=== PATIENT | male | born 1980 | race Caucasian/White ===

== ENCOUNTER 2017-07-21 14:30 | Emergency (ER) | payer OTHER ==
[2017-07-21] MEDS ORDERED: HYDROmorphone 1 MG/ML Syringe IM ONE (14:41)
[2017-07-21] MEDS ORDERED: HYDROmorphone 1 MG/ML Syringe IVPUSH ONE ×2 (14:55→15:41)
[2017-07-21] MEDS ORDERED: Lidocaine 1% 30 ML SDV INJECT ONE (15:14)
[2017-07-21] MEDS ORDERED: Cephalexin 500 MG Cap PO ONE (15:41)
--- NOTE | 2017-07-21 15:41 | EDM.PDOC ---
ED HPI GENERAL MEDICAL PROBLEM - General Chief Complaint: Upper Extremity Injury/Pain Stated Complaint: hand in auger Time Seen by Provider: 07/21/17 14:38 Source of Information: Reports: Patient History Limitations: Reports: No Limitations - History of Present Illness INITIAL COMMENTS - FREE TEXT/NARRATIVE: Patient comes in with complaints of left hand laceration. He had his left hand in an auger when it was turned on while he was working. He is unsure whether his fingers and hand are still attached. Injury is wrapped in blue shop towels. No longer bleeding, pressure was held. Onset: Today, Sudden Onset Date: 07/21/17 Onset Time: 14:15 Location: Reports: Upper Extremity, Left Quality: Reports: Sharp Severity: Severe Improves with: Reports: None Worsens with: Reports: Movement Associated Symptoms: Reports: No Other Symptoms - Related Data Allergies Allergy/AdvReac Type Severity Reaction Status Date / Time No Known Allergies Allergy Verified 07/21/17 14:49 Home Meds: Home Meds . [No Known Home Meds] 07/21/17 [History] Review of Systems - Review of Systems Review Of Systems: See Below Constitutional: Reports: No Symptoms Eyes: Reports: No Symptoms Ears: Reports: No Symptoms Nose: Reports: No Symptoms Mouth/Throat: Reports: No Symptoms Respiratory: Reports: No Symptoms Cardiovascular: Reports: No Symptoms GI/Abdominal: Reports: No Symptoms Genitourinary: Reports: No Symptoms Musculoskeletal: Reports: Hand Pain Skin: Reports: Wound (left hand laceration) Neurological: Reports: Tingling (left 4th and 5th digits) ED EXAM, GENERAL - Physical Exam Exam: See Below Exam Limited By: No Limitations General Appearance: Alert, WD/WN, Moderate Distress Respiratory/Chest: No Respiratory Distress, Lungs Clear, Normal Breath Sounds Cardiovascular: Normal Peripheral Pulses, Regular Rate, Rhythm Neurological: Alert, Oriented, CN II-XII Intact, Normal Cognition, Normal Reflexes Skin Exam: Wound/Incision (8 cm laceration long by 2 cm wide and gaping, visualization of tendons, ligaments, metacarpals) Course - Radiology Interpretation Free Text/Narrative:: x-ray reviewed, minimally displaced 5th distal metacarpal compound fracture - Re-Assessments/Exams Free Text/Narrative Re-Assessment/Exam: 07/21/17 15:55 Did flush wound with 900 ml's saline. I did also decide at that time that the hand surgeon Dr. Seals that I visited with should be the provider to decide whether this needs additional debridement or not. Departure - Departure Time of Disposition: 15:59 Disposition: DC/Tfer to Acute Hospital 02 Condition: Fair Clinical Impression: Fracture of metacarpal bone - Discharge Information Instructions: Metacarpal Fracture, [id number], Crush Injury, Fingers or Toes , [id number] Forms: Interfacility Transfer EMTALA Additional Instructions: You are to go to the emergency room of [facility] in [place] via private vehicle. The web applications administrator that I spoke with was Dr. Seals. - Problem List & Annotations (1) Fracture of metacarpal bone SNOMED Code(s): 657447687 Code(s): S62.309A - UNSP FRACTURE OF UNSP METACARPAL BONE, INIT FOR CLOS FX Status: Acute Current Visit: Yes Qualifiers: Encounter type: initial encounter Metacarpal bone: fifth Fracture type: open Metacarpal location: shaft Fracture alignment: displaced Laterality: left Qualified Code(s): S62.327B - Displaced fracture of shaft of fifth metacarpal bone, left hand, initial encounter for open fracture (2) Laceration of left hand with foreign body SNOMED Code(s): 466588266, 726835147 Code(s): S61.422A - LACERATION WITH FOREIGN BODY OF LEFT HAND, INITIAL ENCOUNTER Status: Acute Priority: Medium Current Visit: Yes Qualifiers: Encounter type: initial encounter Qualified Code(s): S61.422A - Laceration with foreign body of left hand, initial encounter - Problem List Review Problem List Initiated/Reviewed/Updated: Yes - Assessment/Plan Plan: Patient given 500 mg oral keflex 2 total mg of IV dilaudid Plan to take private vehicle to [place] to be seen in the ER by Dr. Seals. He will ultimately decide on surgical debridement or suturing with follow up.
== END 2017-07-21 16:15 | disposition short-term general hospital (02) ==
LOC: VM.ED 14:30
DX: S62.337B Displaced fracture of neck of fifth metacarpal bone, left hand, initial encounter for open fracture (principal); W27.0XXA Contact with workbench tool, initial encounter; Y92.69 Other specified industrial and construction area as the place of occurrence of the external cause; Y99.0 Civilian activity done for income or pay
CPT/HCPCS: 73130; 96374; 96376; 99284; A9270; J1170